=== PATIENT | female | born 1965 | race Caucasian/White ===

== ENCOUNTER 2019-01-14 14:44 | Inpatient (IN) | payer MEDICAID ==
[~2019-01-14] VITALS: Ht 154.9 cm; Wt 108.9 kg
[2019-01-14] MEDS ORDERED: INFED (14:58)
[2019-01-14] MEDS ORDERED: TOPAMAX50 MG PO (14:59)
[2019-01-14] MEDS ORDERED: HYDROCHLOROTHIA50 MG PO (14:59)
[2019-01-14 15:22] LABS: BASOPHILS 0.1 % (0-2); EOSINOPHILS 0 % (0-7); HEMATOCRIT 42.5 % (36.0-48.0); HEMOGLOBIN 15.6 g/dL (12-16); IMMATURE GRANULOCYTES 0.6 % (0-5); LYMPHOCYTES 12.5 % (15-50); MCH 31.5 pg (26.0-34.0); MCHC 36.7 g/dL (31.0-37.0); MCV 85.9 fL (80.0-100.0); MEAN PLATELET VOLUME 10.5 fL (7.4-10.4); MONOCYTES 7.1 % (2-11); NEUTROPHILS 79.7 % (40-80); PLATELET COUNT 141 10x3/uL (130-400); RBC 4.95 10x6/uL (4.00-5.40); RDW 13.7 % (11.5-14.5); WBC 7.2 10x3/uL (4.8-10.8)
[2019-01-14 15:31] LABS: APTT 28.5 SECONDS (22.8-39.4); INR 1.14 (0.85-1.17); PROTIME 14.1 SECONDS (11.6-15.0)
[2019-01-14 16:12] LABS: ALKALINE PHOSPHATASE 63 U/L (46-116); ALT (SGPT) 24 U/L (10-68); BILIRUBIN - TOTAL 0.62 mg/dL (0.2-1.3); CALC OSMOLALITY 258 mosm/kg (275-300); CALCIUM 8.1 mg/dL (8.5-10.1); CARBON DIOXIDE 28.1 mmol/L (21.0-32.0); CHLORIDE - SERUM 94 mmol/L (98-107); CKMB 1.3 U/L (0.0-3.6); CREATINE KINASE 313 UL (21-215); CREATININE - SERUM 0.9 mg/dL (0.6-1.3); GLUCOSE 106 mg/dL (74-106); MAGNESIUM - SERUM 1.9 mg/dL (1.8-2.4); PROTEIN - SERUM 7.1 g/dL (6.4-8.2); SODIUM 129 mmol/L (136-145); UREA NITROGEN 12 mg/dL (7-18); eGFR NON AFRICAN AMERICAN 69 mL/min (90-120)
[2019-01-14 16:14] LABS: TROPONIN-I < 0.017 ng/mL (0.000-0.060)
[2019-01-14 16:16] LABS: POTASSIUM - SERUM 2.4 mmol/L (3.5-5.1)
[2019-01-14 16:27] VITALS: BP 104/46
[2019-01-14 16:51] LABS: AMYLASE - SERUM 10 U/L (25-115); LIPASE 50 U/L (73-393)
[2019-01-14 17:13] VITALS: BP 102/63
[2019-01-14 18:16] LABS: APPEARANCE CLEAR (CLEAR); BILIRUBIN NEGATIVE (NEGATIVE); COLOR YELLOW (YELLOW); GLUCOSE NEGATIVE (NEGATIVE); KETONE MODERATE mg/dL (NEGATIVE); NITRITE NEGATIVE (NEGATIVE); PROTEIN TRACE mg/dL (NEGATIVE); SPECIFIC GRAVITY 1.015 (1.005-1.020); UROBILINOGEN NORMAL (NORMAL)
[2019-01-14 18:17] LABS: BACTERIA FEW /hpf (NONE SEEN); RED CELLS - URINE 0-5 /hpf (0-5); WHITE CELLS - URINE 0-5 /hpf (0-5)
[2019-01-14 18:58] VITALS: BP 100/58
--- NOTE | 2019-01-14 19:27 | NUR ---
BS REPORT TO DEEPAK MCCULLOUGH BY SBAR FORMAT
--- NOTE | 2019-01-14 19:32 | NUR ---
LAB IN ROOM TO OBTAIN BLOOD CULTURES AND LATIC ACID
[2019-01-14 19:52] VITALS: BP 89/61
[2019-01-14 20:47] VITALS: BP 101/54; BMI 45.4
[2019-01-15 00:29] VITALS: BP 100/54
[2019-01-15 04:00] VITALS: BP 103/60
[2019-01-15 06:53] LABS: BASOPHILS 0.2 % (0-2); EOSINOPHILS 0.4 % (0-7); HEMATOCRIT 37.5 % (36.0-48.0); HEMOGLOBIN 13.2 g/dL (12-16); IMMATURE GRANULOCYTES 0.4 % (0-5); LYMPHOCYTES 16.8 % (15-50); MCH 30.4 pg (26.0-34.0); MCHC 35.2 g/dL (31.0-37.0); MCV 86.4 fL (80.0-100.0); MEAN PLATELET VOLUME 10.1 fL (7.4-10.4); MONOCYTES 10.7 % (2-11); NEUTROPHILS 71.5 % (40-80); PLATELET COUNT 135 10x3/uL (130-400); RBC 4.34 10x6/uL (4.00-5.40); RDW 13.7 % (11.5-14.5); WBC 4.5 10x3/uL (4.8-10.8)
[2019-01-15 06:58] LABS: CALC OSMOLALITY 269 mosm/kg (275-300); CALCIUM 7.3 mg/dL (8.5-10.1); CARBON DIOXIDE 24.3 mmol/L (21.0-32.0); CHLORIDE - SERUM 101 mmol/L (98-107); CREATININE - SERUM 0.7 mg/dL (0.6-1.3); GLUCOSE 90 mg/dL (74-106); MAGNESIUM - SERUM 1.9 mg/dL (1.8-2.4); PHOSPHOROUS 1.7 mg/dL (2.5-4.9); SODIUM 135 mmol/L (136-145); UREA NITROGEN 12 mg/dL (7-18); eGFR NON AFRICAN AMERICAN > 90 mL/min (90-120)
--- NOTE | 2019-01-15 07:00 | NUR ---
ROUNDING DONE WITH PATIENT LAYING ON BACK, HEAD TO RIGHT SIDE, RESTING WITH EYES CLOSED. AROUSES EASILY. DENIES NEEDS. RIGHT FA PIV SEEN WITH NS INFUSING AT 125 CC/HR. ON ROOM AIR. ON EP, NO LAB RESULTS AT THIS TIME. ON HEART MONITOR.
[2019-01-15 07:26] VITALS: BP 105/53
[2019-01-15 07:34] LABS: POTASSIUM - SERUM 2.2 mmol/L (3.5-5.1)
--- NOTE | 2019-01-15 07:38 | NUR ---
EP RESULTS OF K+ 2.2 AND PHOS 1.7. WILL COVER WITH ORAL AND IV SUPPLEMENTS.
--- NOTE | 2019-01-15 08:13 | NUR ---
GREEN LOOST STOOL IN [place]. 07/07 IV POTASSIUM STARTED INFUSING SLOWLY.
--- NOTE | 2019-01-15 08:46 | NUR ---
PATIENT IS UP AND DOWN TO RESTROOM OFTEN, DOES NOT WANT TO WEAR SCD'S.
--- NOTE | 2019-01-15 08:58 | MORECARE ---
CASE MANAGEMENT DISCHARGE SUMMARY PATIENT: JESUSITA GOLDSTEIN UNIT: [id number] ADM DATE: 01/14/19 AGE: 53 : 65 SEX: F ROOM/BED: D.1210 AUTHOR: ANKITA BAIRES PHYSICIAN: REFERRING PHYSICIAN: ELIZA LEI MD DATE OF SERVICE: 01/15/19 Discharge Plan Patient Name: JESUSITA GOLDSTEIN Facility: [facility]:[place] : 1965 Planned Disposition: Home Anticipated Discharge Date: Discharge Date: Expected LOS: Initial Reviewer: [email or web address] Initial Review Date: 01/15/2019 Generated: 01/15/19 9:58 am Comments DCP- Discharge Planning Updated by [email or web address]: Santa Portillo on 01/15/19 7:[address] Patient Name: JESUSITA GOLDSTEIN Admission Status: ER Accout number: [id number] Admission Date: 01-14-2019 : 1965 Admission Diagnosis: Attending: ELIZA LEI Current LOS: 1 Anticipated DC Date: Planned Disposition: Home Primary Insurance: [place] [employer] Discharge Planning Comments: CM MEET WITH PT AFTER GETTING VERBAL CONSENT TO CONTINUE WITH INITAL ASSESSMENT AND DISCHARGE NEEDS. CM EDUCATED ON ROLE OF CM AND THE SERVICES AVALIABLE SUCH HH, REHAB AND DME SERVICES. PT LIVES AT HOME WITH FAMILY STATES HOME IS A SAFE DC PLAN. DENIES ANY CM NEEDS. CM WILL CONTINUE TO FOLLOW. Water System Operator: Santa Portillo DCPIA - Discharge Planning Initial Assessment Updated by [id number]: Santa Portillo on 01/15/19 8:55 am * Is the patient Alert and Oriented? Yes * PCP AMEENA * Pharmacy [facility] [address] * List name and contact numbers for known caregivers / representatives who currently or will assist patient after discharge: PHILIP, , * Additional services required to return to the preadmission environment? No * Can the patient safely return to the preadmission environment? Yes * Has this patient been hospitalized within the prior 30 days at any hospital? No Patient Name: JESUSITA GOLDSTEIN Page [phone] at 0858 All edits/amendments must be made on the electronic document DICTATION DATE: 01/15/19856 AIRCRAFT ACCESSORIES MECHANIC: COY 01/15/19856 RPT#: [id number] DC DATE: STATUS: ADM IN [facility] [address] [place] [address] END OF REPORT
--- NOTE | 2019-01-15 09:06 | MORECARE ---
CASE MANAGEMENT DISCHARGE SUMMARY PATIENT: JESUSITA GOLDSTEIN UNIT: [id number] ADM DATE: 01/14/19 AGE: 53 : 65 SEX: F ROOM/BED: D.1210 AUTHOR: ANKITA BAIRES PHYSICIAN: REFERRING PHYSICIAN: ELIZA LEI MD DATE OF SERVICE: 01/15/19 Discharge Plan Patient Name: JESUSITA GOLDSTEIN Facility: [facility]:[place] : 1965 Planned Disposition: Home Anticipated Discharge Date: Discharge Date: Expected LOS: Initial Reviewer: [email or web address] Initial Review Date: 01/15/2019 Generated: 01/15/19 10:06 am DCP- Discharge Planning Updated by [email or web address]: Santa Portillo on 01/15/19 7:[address] Patient Name: JESUSITA GOLDSTEIN Admission Status: ER Accout number: [id number] Admission Date: 01-14-2019 : 1965 Admission Diagnosis: Attending: ELIZA LEI Current LOS: 1 Anticipated DC Date: Planned Disposition: Home Primary Insurance: [place] [employer] Discharge Planning Comments: CM MEET WITH PT AFTER GETTING VERBAL CONSENT TO CONTINUE WITH INITAL ASSESSMENT AND DISCHARGE NEEDS. CM EDUCATED ON ROLE OF CM AND THE SERVICES AVALIABLE SUCH HH, REHAB AND DME SERVICES. PT LIVES AT HOME WITH FAMILY STATES HOME IS A SAFE DC PLAN. DENIES ANY CM NEEDS. CM WILL CONTINUE TO FOLLOW. Medical Records Library Professor: Santa Portillo DCPIA - Discharge Planning Initial Assessment Updated by [id number]: Santa Portillo on 01/15/19 8:55 am * Is the patient Alert and Oriented? Yes * PCP AMEENA * Pharmacy [facility] [address] * List name and contact numbers for known caregivers / representatives who currently or will assist patient after discharge: PHILIP, , * Additional services required to return to the preadmission environment? No * Can the patient safely return to the preadmission environment? Yes * Has this patient been hospitalized within the prior 30 days at any hospital? No Last DP export: 01/15/19 7:58 a Patient Name: JESUSITA GOLDSTEIN Page [phone] at 0906 All edits/amendments must be made on the electronic document DICTATION DATE: 01/15/19904 PROPERTY INSURANCE AGENT: COY 01/15/19904 RPT#: [id number] DC DATE: STATUS: ADM IN [facility] [address] [place] [address] END OF REPORT
--- NOTE | 2019-01-15 09:32 | NUR ---
GREEN LIQUID STOOL SENT TO LAB ORDERED.
[2019-01-15 10:47] VITALS: Ht 154.9 cm; Wt 108.9 kg
[2019-01-15 11:27] VITALS: BP 95/58
--- NOTE | 2019-01-15 11:30 | NUR ---
AROUSES EASILY FOR VITAL SIGNS, B/P DOWN SLIGHTLY. DENIES ANY NEEDS AND IS ASYMOTOMATIC.
--- NOTE | 2019-01-15 12:24 | NUR ---
DAUGHTER IS WANTING TO HELP HER MOTHER WITH A SHOWER. I EXPLAINED THAT WITH HER B/P DOWN SOME AND HER SLIGHT WEAKNESS FROM THE DIARREHA AND LOW POTASSIUM, THAT I WOULD RATHER SAT HER UP ON SIDE OF BED WITH SOAPY WATER AND THEN LINEN CHANGE. THEY AGREEDED TO THIS.
--- NOTE | 2019-01-15 13:03 | NUR ---
RESTING QUIETLY WITH EYES CLOSED, RESP ARE EVEN. WHEN AWAKE, WILL SEE IF PATIENT WILL WANT TO CLEAN UP AND HAVE BED LINEN CHANGED.
--- NOTE | 2019-01-15 13:36 | NUR ---
URINE SENT FOR CULTURE ORDERED.
--- NOTE | 2019-01-15 13:51 | NUR ---
BED BATH DONE. WILL CHANGE LINENS WHEN READY.
[2019-01-15 16:18] VITALS: BP 96/43
--- NOTE | 2019-01-15 16:56 | NUR ---
ASSSITED TO RESTROOM. SCANT AMOUT OF LOOSE GREEN STOOL. DENIES NEEDS AT THIS TIME, STILL ON CLEAR LIQUIDS.
--- NOTE | 2019-01-15 19:10 | NUR ---
PATIENT RESTING IN BED ON PHONE AND DENIES NEEDS AT THIS TIME. BED IN LOWEST POSITION AND CALL LIGHT WITHIN REACH. ENCOURAGED THE PATIENT TO CALL IF SHE HAS NEEDS. WILL CONTINUE TO MONITOR.
[2019-01-15 19:58] VITALS: BP 91/53
[2019-01-16 00:49] VITALS: BP 102/55
[2019-01-16 05:59] VITALS: BP 106/56
[2019-01-16 06:52] LABS: BASOPHILS 0.6 % (0-2); HEMATOCRIT 37.5 % (36.0-48.0); HEMOGLOBIN 13.2 g/dL (12-16); IMMATURE GRANULOCYTES 0.4 % (0-5); LYMPHOCYTES 28.8 % (15-50); MCH 30.6 pg (26.0-34.0); MCHC 35.2 g/dL (31.0-37.0); MEAN PLATELET VOLUME 10.3 fL (7.4-10.4); NEUTROPHILS 54.2 % (40-80); PLATELET COUNT 158 10x3/uL (130-400); RBC 4.31 10x6/uL (4.00-5.40); RDW 14.1 % (11.5-14.5)
[2019-01-16 06:58] LABS: CALCIUM 7.5 mg/dL (8.5-10.1); CARBON DIOXIDE 28.4 mmol/L (21.0-32.0); CHLORIDE - SERUM 106 mmol/L (98-107); CREATININE - SERUM 0.7 mg/dL (0.6-1.3); GLUCOSE 106 mg/dL (74-106); SODIUM 141 mmol/L (136-145); eGFR NON AFRICAN AMERICAN > 90 mL/min (90-120)
[2019-01-16 07:34] VITALS: BP 96/55
[2019-01-16 07:44] LABS: CALC OSMOLALITY 277 mosm/kg (275-300); UREA NITROGEN 5 mg/dL (7-18)
[2019-01-16 07:46] LABS: PHOSPHOROUS 1.5 mg/dL (2.5-4.9); POTASSIUM - SERUM 2.7 mmol/L (3.5-5.1)
--- NOTE | 2019-01-16 09:17 | NUR ---
PT RESTING IN BED, SHIFT ASSESSMENT PERFORMED. ASSISTED PT TO BATHROOM AND BACK TO BED. DENIES ANY OTHER NEEDS AT THIS TIME, WILL CONT TO FOLLOW POC
[2019-01-16 11:12] VITALS: BP 109/59
--- NOTE | 2019-01-16 11:18 | NUR ---
PT RESTING IN BED. DENIES ANY NEEDS AT THIS TIME. WILL CONT TO FOLLOW POC
[2019-01-16 16:55] VITALS: BP 107/52
--- NOTE | 2019-01-16 16:56 | MORECARE ---
CASE MANAGEMENT DISCHARGE SUMMARY PATIENT: JESUSITA GOLDSTEIN UNIT: [id number] ADM DATE: 01/14/19 AGE: 53 : 65 SEX: F ROOM/BED: D.1210 AUTHOR: ANKITA BAIRES PHYSICIAN: REFERRING PHYSICIAN: ELIZA LEI MD DATE OF SERVICE: 01/16/19 Discharge Plan Patient Name: JESUSITA GOLDSTEIN Facility: [facility]:[place] : 1965 Planned Disposition: Home Anticipated Discharge Date: Discharge Date: Expected LOS: Initial Reviewer: [email or web address] Initial Review Date: 01/15/2019 Generated: 01/16/19 5:56 pm DCP- Discharge Planning Updated by [email or web address]: Santa Portillo on 01/15/19 7:[address] Patient Name: JESUSITA GOLDSTEIN Admission Status: ER Accout number: [id number] Admission Date: 01-14-2019 : 1965 Admission Diagnosis: Attending: ELIZA LEI Current LOS: 1 Anticipated DC Date: Planned Disposition: Home Primary Insurance: [place] [employer] Discharge Planning Comments: CM MEET WITH PT AFTER GETTING VERBAL CONSENT TO CONTINUE WITH INITAL ASSESSMENT AND DISCHARGE NEEDS. CM EDUCATED ON ROLE OF CM AND THE SERVICES AVALIABLE SUCH HH, REHAB AND DME SERVICES. PT LIVES AT HOME WITH FAMILY STATES HOME IS A SAFE DC PLAN. DENIES ANY CM NEEDS. CM WILL CONTINUE TO FOLLOW. Combiner Operator: Santa Portillo DCPIA - Discharge Planning Initial Assessment Updated by [email or web address]: Santa Portillo on 01/15/19 8:55 am * Is the patient Alert and Oriented? Yes * PCP AMEENA * Pharmacy [facility] [address] * List name and contact numbers for known caregivers / representatives who currently or will assist patient after discharge: PHILIP, , * Additional services required to return to the preadmission environment? No * Can the patient safely return to the preadmission environment? Yes * Has this patient been hospitalized within the prior 30 days at any hospital? No Last DP export: 01/15/19 8:06 a Patient Name: JESUSITA GOLDSTEIN Page [phone] at 1656 All edits/amendments must be made on the electronic document DICTATION DATE: 01/16/191654 QA MANAGER: COY 01/16/191654 RPT#: [id number] DC DATE: STATUS: ADM IN [facility] [address] [place] [address] END OF REPORT
--- NOTE | 2019-01-16 17:02 | NUR ---
PT RESTING IN BED, DENIES ANY NEEDS AT THIS TIME, WILL CONT TO FOLLOW POC
[2019-01-16] MEDS ORDERED: INFED IM (17:50)
[2019-01-16 19:58] VITALS: BP 101/51
[2019-01-17] VITALS: BP 103/58
[2019-01-17 04:39] VITALS: BP 90/52
[2019-01-17 06:58] LABS: BASOPHILS 1.4 % (0-2); EOSINOPHILS 3.8 % (0-7); HEMATOCRIT 37.3 % (36.0-48.0); HEMOGLOBIN 12.9 g/dL (12-16); IMMATURE GRANULOCYTES 0.5 % (0-5); LYMPHOCYTES 40.1 % (15-50); MCH 30.3 pg (26.0-34.0); MCHC 34.6 g/dL (31.0-37.0); MCV 87.6 fL (80.0-100.0); MEAN PLATELET VOLUME 10.3 fL (7.4-10.4); MONOCYTES 12.2 % (2-11); PLATELET COUNT 175 10x3/uL (130-400); RBC 4.26 10x6/uL (4.00-5.40); RDW 14.5 % (11.5-14.5); WBC 5.6 10x3/uL (4.8-10.8)
[2019-01-17 07:20] LABS: CALC OSMOLALITY 280 mosm/kg (275-300); CALCIUM 7.1 mg/dL (8.5-10.1); CARBON DIOXIDE 24.5 mmol/L (21.0-32.0); CHLORIDE - SERUM 110 mmol/L (98-107); CREATININE - SERUM 0.7 mg/dL (0.6-1.3); GLUCOSE 101 mg/dL (74-106); PHOSPHOROUS 1.7 mg/dL (2.5-4.9); SODIUM 142 mmol/L (136-145); UREA NITROGEN 6 mg/dL (7-18); eGFR NON AFRICAN AMERICAN > 90 mL/min (90-120)
[2019-01-17 07:21] LABS: POTASSIUM - SERUM 3.7 mmol/L (3.5-5.1)
--- NOTE | 2019-01-17 07:45 | NUR ---
PT ALERT AND ORIENTED. UP AD DAVID. REFUSED ASPIRIN THIS AM STATED DR. HUMMEL TOLD HER NOT TO TAKE ANYMORE. ASSESSMENT COMPLETE. BOWEL SOUNDS HYPOACTIVE IN ALL QUADRANTS. PT STATES " BM X1 THIS AM. FORMED FOR THE MOST PART. BUT HASNT BEEN EATING HER FULL LIQUID DIET DUE TO LACTOSE INTOLERANCE." RR EVEN AND UNLABORED. NO DISTRESS NOTED. DENIES NEEDS AT THIS TIME. 1000- D/C ORDERS STATES IF FOOD IS TOLERATED PT MAY BE D/C. TRAY ORDERED AND PT EATING AT THIS TIME. STATES SHE NEEDS TO BE D/C BEFORE 1230 BECAUSE HER IS HER ONLY MODE OF TRANSPORTATION.
[2019-01-17] MEDS ORDERED: LEVAQUIN750 MG PO (09:59)
[2019-01-17] MEDS ORDERED: FLAGYL500 MG PO (10:00)
--- NOTE | 2019-01-17 11:45 | NUR ---
PT D/C PER PERSONAL VEHICHLE VIA WHEELCHAIR. ALL PERSONAL BELONGINGS WITH PT. D/C PAPERS SIGNED AND PT COPY WITH PT. DENIES FURTHER QUESTIONS. VERBALIZES UNDERSTANDING. TELEMETRY TAKEN OFF PT AND RETURNED TO MONITORS. IV D/C WITH CATHETER TIP INTACT.
--- NOTE | 2019-01-17 11:48 | NUR ---
I have reviewed this patient and I concur with the Shift Assessment completed by the Licensed Practical Nurse today this shift.
--- NOTE | 2019-01-18 09:45 | MORECARE ---
CASE MANAGEMENT DISCHARGE SUMMARY PATIENT: JESUSITA GOLDSTEIN UNIT: [id number] ADM DATE: 01/14/19 AGE: 53 : 65 SEX: F ROOM/BED: D.1210 AUTHOR: ANKITA BAIRES PHYSICIAN: REFERRING PHYSICIAN: ELIZA LEI MD DATE OF SERVICE: 01/18/19 Discharge Plan Patient Name: JESUSITA GOLDSTEIN Facility: [facility]:[place] : 1965 Planned Disposition: Home Anticipated Discharge Date: Discharge Date: 01/17/2019 Expected LOS: Initial Reviewer: [email or web address] Initial Review Date: 01/15/2019 Generated: 01/18/19 10:44 am DCP- Discharge Planning Updated by [email or web address]: Santa Portillo on 01/15/19 7:[address] Patient Name: JESUSITA GOLDSTEIN Admission Status: ER Accout number: [id number] Admission Date: 01-14-2019 : 1965 Admission Diagnosis: Attending: ELIZA LEI Current LOS: 1 Anticipated DC Date: Planned Disposition: Home Primary Insurance: [place] [employer]IONS [employer] Discharge Planning Comments: CM MEET WITH PT AFTER GETTING VERBAL CONSENT TO CONTINUE WITH INITAL ASSESSMENT AND DISCHARGE NEEDS. CM EDUCATED ON ROLE OF CM AND THE SERVICES AVALIABLE SUCH HH, REHAB AND DME SERVICES. PT LIVES AT HOME WITH FAMILY STATES HOME IS A SAFE DC PLAN. DENIES ANY CM NEEDS. CM WILL CONTINUE TO FOLLOW. Director Blood Bank: Santa Portillo DCPIA - Discharge Planning Initial Assessment Updated by [email or web address]: Santa Portillo on 01/15/19 8:55 am * Is the patient Alert and Oriented? Yes * PCP AMEENA * Pharmacy [facility] [address] * List name and contact numbers for known caregivers / representatives who currently or will assist patient after discharge: PHILIP, , * Additional services required to return to the preadmission environment? No * Can the patient safely return to the preadmission environment? Yes * Has this patient been hospitalized within the prior 30 days at any hospital? No Last DP export: 01/16/19 3:56 p Patient Name: JESUSITA GOLDSTEIN Page [phone] at 0945 All edits/amendments must be made on the electronic document DICTATION DATE: 01/18/19943 BROADCAST DIRECTOR OPERATIONS: COY 01/18/1944 RPT#: [id number] DC DATE:01/17/19 STATUS: DIS IN [facility] [address] [place] [address] END OF REPORT
== END 2019-01-17 12:08 | disposition home or self-care (01) | DRG 392 ==
LOC: D.ER 14:44 → D.M3 19:17
PROVIDERS: Family Medicine; ADMIT Internal Medicine Nephrology; ATTEND Internal Medicine Nephrology
DX: A09 Infectious gastroenteritis and colitis, unspecified (principal); E87.1 Hypo-osmolality and hyponatremia; F17.213 Nicotine dependence, cigarettes, with withdrawal; Z68.42 Body mass index [BMI] 45.0-49.9, adult; E87.6 Hypokalemia; D50.9 Iron deficiency anemia, unspecified; E66.01 Morbid (severe) obesity due to excess calories